=== PATIENT | female | born 1955 ===

== ENCOUNTER 2025-01-24 08:15 | Day surgery (SDC) | payer MEDICARE ==
[~2025-01-24] VITALS: Ht 157.5 cm; Wt 72.5 kg
[2025-01-24] MEDS ORDERED: Crestor40 MG (09:14)
[2025-01-24] MEDS ORDERED: Ondansetron HCl 2 MG / ML 2ML Vial ONE (10:43)
--- NOTE | 2025-01-24 11:38 | NUR ---
01/24/25 1138 Yoan Berg PT APPEARED TO BE OBSTRUCTING DURING PROCEDURE. JAW THRUST WAS PERFORMED AND NC WAS REPLACED WITH POM MASK 10 L/MIN. PT OPENED EYES AND TRIED TO TALK AT ABOUT 1012. PT APPEARED TO POSSIBLY BE WRETCHING AND WAS GIVEN 4MG IV ZOFRAN, PER DR. ENRIQUEZ ORDERS AT 1015.
--- NOTE | 2025-01-24 11:40 | NUR ---
01/24/25 1140 Yoan Berg PT INSTRUCTED TO CONSULT PCP REGARDING SLEEP APNEA AND SLEEP STUDY.
[2025-01-24 11:43] VITALS: BP 130/84
== END 2025-01-24 11:05 | disposition home or self-care (01) ==
LOC: ORSCSDS 08:15
PROVIDERS: Surgery
PROC: 0DBN8ZX Excision of Sigmoid Colon, Via Natural or Artificial Opening Endoscopic, Diagnostic (ICD-10-PCS; principal; 2025-01-24 09:45)
PROC: 0DBP8ZX Excision of Rectum, Via Natural or Artificial Opening Endoscopic, Diagnostic (ICD-10-PCS; principal; 2025-01-24 09:45)
DX: Z12.11 Encounter for screening for malignant neoplasm of colon (principal); Z80.0 Family history of malignant neoplasm of digestive organs; D12.8 Benign neoplasm of rectum; D12.5 Benign neoplasm of sigmoid colon; E78.5 Hyperlipidemia, unspecified; Z85.820 Personal history of malignant melanoma of skin; Z85.41 Personal history of malignant neoplasm of cervix uteri; Z79.899 Other long term (current) drug therapy
CPT/HCPCS: 88305; J2405; J2704; J7120